=== PATIENT | male | born 1985 | race Hispanic/Latino ===

== ENCOUNTER 2018-01-07 12:33 | Emergency (ER) | payer OTHER ==
[~2018-01-07] VITALS: Ht 157.5 cm; Wt 135.6 kg
--- OUTSIDE RECORDS SUMMARY | 2018-01-07 12:35 | XMS REPORT | Clinical Summary ---
Author Author [facility] Address Unknown Phone Unavailable Care Team Providers Care Parachute Inspector Name Role Phone Jacob Pearl MD PCP Allergies No Known Allergies Current Medications Prescription Sig. Disp. Refills Start End Date Status Date cefdinir (OMNICEF) 300 MG Take 1 capsule (300 mg 20 capsule 0 07/16/20 capsuleIndications: total) by mouth 2 (two) 17 17 History of recurrent ear times a day for 10 days. infection Active Problems Problem Noted Date Chronic idiopathic constipation 08/25/2017 Hyperplastic colon polyp 08/09/2017 Overview: 2 sessile benign 07/2017 - repeat colonoscopy in 5 years 07/2022 Internal hemorrhoid 08/09/2017 Overview: Need high fiber diet Encounters Date Type Specialty Care Team Description 08/25/2017 Telephone Family Medicine Solange Polanco MA 07/06/2017 Office Visit Family Medicine Jayashree Pearl MD Routine check-up (Primary Dx); Irritable bowel syndrome with both constipation and diarrhea; Screening, lipid; Screening for endocrine disorder; Screening for prostate cancer; History of recurrent ear infection after 01/06/2017 Family History Medical History Relation Name Comments No Known Problems Father Hypertension Maternal Grandfather Hypertension Maternal Grandmother Hypertension Mother Relation Name Status Comments Brother Alive Brother Alive Brother Alive Father Alive Maternal Grandfather Maternal Grandmother Alive Mother Alive Paternal Grandfather Alive Paternal Grandmother Alive Social History Tobacco Use Types Packs/Day Years Used Date Current Some Day Smoker Cigars 0 Smokeless Tobacco: Never Used Tobacco Cessation: Ready to Quit: No; Counseling Given: Yes Comments: cigar every once in a while Alcohol Use Drinks/Week oz/Week Comments Yes 1 Cans of 0.6 1/ week beer Sex Assigned at Date Recorded Not on file Last Filed Vital Signs Vital Sign Reading Time Taken Blood Pressure 124/84 07/06/2017 10:13 AM CDT Pulse 58 07/06/2017 10:13 AM CDT Temperature 36.6 C (97.9 F) 07/06/2017 10:13 AM CDT Respiratory Rate - - Oxygen Saturation 99% 07/06/2017 10:13 AM CDT Inhaled Oxygen - - Concentration Weight 133 kg (294 lb) 07/06/2017 10:13 AM CDT Height 172.7 cm (5' 8") 07/06/2017 10:13 AM CDT Body Mass Index 44.7 07/06/2017 10:13 AM CDT Plan of Treatment Health Maintenance Due Date Last Done Comments INFLUENZA VACCINE 04/12/2018 Results * Thyroid stimulating hormone (07/06/2017 11:13 AM) Component Value Ref Range TSH 1.34 0.40 - 4.50 mIU/L Specimen Performing Laboratory [facility] Narrative FASTING:YES * Prostate specific antigen (07/06/2017 11:13 AM) Component Value Ref Range PSA 0.3 < OR=4.0 ng/mL Comment: The total PSA value from this assay system is standardized against the WHO standard. The test result will be approximately 20% lower when compared to the equimolar-standardized total PSA (Jose Vernon). Comparison of serial PSA results should be interpreted with this fact in mind. This test was performed using the Siemens chemiluminescent method. Values obtained from different assay methods cannot be used interchangeably. PSA levels, regardless of value, should not be interpreted as absolute evidence of the presence or absence of disease. Specimen Performing Laboratory [facility] Narrative FASTING:YES * Hemoglobin A1c (07/06/2017 11:13 AM) Component Value Ref Range Hemoglobin A1C 5.3 <5.7 % of total Hgb Comment: For the purpose of screening for the presence of diabetes: <5.7% Consistent with the absence of diabetes 5.7-6.4% Consistent with increased risk for diabetes (prediabetes) > or=6.5% Consistent with diabetes This assay result is consistent with a decreased risk of diabetes. Currently, no consensus exists regarding use of hemoglobin A1c for diagnosis of diabetes in children. According to [place] Diabetes Association (ADA) guidelines, hemoglobin A1c <7.0% represents optimal control in non- diabetic patients. Different metrics may apply to specific patient populations. Standards of Medical Care in Diabetes(ADA). Specimen Performing Laboratory [facility] Narrative FASTING:YES * Lipid panel (07/06/2017 11:13 AM) Component Value Ref Range Cholesterol, total 183 <200 mg/dL HDL cholesterol 38 (L) >40 mg/dL Triglycerides 125 <150 mg/dL LDL cholesterol 121 (H) mg/dL (calc) calculated Comment: Reference range: <100 Desirable range <100 mg/dL for patients with CHD or diabetes and <70 mg/dL for diabetic patients with known heart disease. LDL-C is now calculated using the Cesar calculation, which is a validated novel method providing better accuracy than the Friedewald equation in the estimation of LDL-C. Dangelo SS et al. THAO. 2013;310(19): 6458-9171 (http://education.[employer]/faq/KWZ083) Cholesterol/HDL ratio 4.8 <5.0 (calc) Non-HDL cholesterol 145 (H) <130 mg/dL (calc) Comment: For patients with diabetes plus 1 major ASCVD risk factor, treating to a non-HDL-C goal of <100 mg/dL (LDL-C of <70 mg/dL) is considered a therapeutic option. Specimen Performing Laboratory [facility] Narrative FASTING:YES * Comprehensive metabolic panel (07/06/2017 11:13 AM) Component Value Ref Range Glucose 87 65 - 99 mg/dL Comment: Fasting reference interval BUN, whole blood 16 7 - 25 mg/dL Creatinine 1.02 0.60 - 1.35 mg/dL EGFR Non-Afr. [place] 98 > OR=60 mL/min/1.73m2 EGFR 114 > OR=60 mL/min/1.73m2 BUN/creatinine ratio NOT APPLICABLE 6 - 22 (calc) Sodium 143 135 - 146 mmol/L Potassium 4.8 3.5 - 5.3 mmol/L Chloride 106 98 - 110 mmol/L CO2 28 20 - 31 mmol/L Calcium 9.8 8.6 - 10.3 mg/dL Protein 7.4 6.1 - 8.1 g/dL Albumin, S 4.8 3.6 - 5.1 g/dL Globulin, total 2.6 1.9 - 3.7 g/dL (calc) Albumin/globulin ratio 1.8 1.0 - 2.5 (calc) Total bilirubin 0.5 0.2 - 1.2 mg/dL Alkaline phosphatase 60 40 - 115 U/L AST 21 10 - 40 U/L ALT 49 (H) 9 - 46 U/L Specimen Performing Laboratory [facility] Narrative FASTING:YES after 01/06/2017 Insurance Payer Benefit Subscriber ID Type Phone Address Plan / Group AETNA AETNA xxxxxxxxxx HMO HMO,POS,EP [place], [place] [address]
[2018-01-07 14:17] VITALS: BP 138/76
[2018-01-07] MEDS ORDERED: TETANUS/DIPHTHERIA TOX ADULT 0.5 ML SYR IM ONE (14:30)
== END 2018-01-07 14:27 | disposition home or self-care (01) ==
LOC: FSED 12:33
PROC: 0JQ10ZZ Repair Face Subcutaneous Tissue and Fascia, Open Approach (ICD-10-PCS; principal; 2018-01-07)
DX: S01.82XA Laceration with foreign body of other part of head, initial encounter (principal); W20.8XXA Other cause of strike by thrown, projected or falling object, initial encounter; Y92.017 Garden or yard in single-family (private) house as the place of occurrence of the external cause; Z23 Encounter for immunization; I10 Essential (primary) hypertension
CPT/HCPCS: 70496; 90471; 90714; 96372; 99283

== ENCOUNTER 2021-01-11 19:23 | Emergency (ER) | payer OTHER ==
[~2021-01-11] VITALS: Ht 157.5 cm; Wt 135.6 kg
== END 2021-01-11 21:00 | disposition home or self-care (01) ==
LOC: ER 20:05
DX: T24.111A Burn of first degree of right thigh, initial encounter (principal); T25.122A Burn of first degree of left foot, initial encounter; X11.8XXA Contact with other hot tap-water, initial encounter; Y92.008 Other place in unspecified non-institutional (private) residence as the place of occurrence of the external cause
CPT/HCPCS: 99282

== ENCOUNTER 2024-01-03 12:55 | Emergency (ER) | payer OTHER ==
[~2024-01-03] VITALS: Ht 172.7 cm; Wt 145.1 kg
[2024-01-03] MEDS: ASPIRIN 81 MG CHEW TAB PO ONE (13:39)
[2024-01-03] MEDS ORDERED: ASPIRIN 81 MG CHEW TAB ONE (13:40)
[2024-01-03 13:41] LABS: BASOPHILS % 0.2 % (0.0-1.0); EOSINOPHILS # (AUTO) 0.4 (0.0-0.4); HEMATOCRIT 42.3 % (38.2-49.6); HEMOGLOBIN 14.6 g/dL (14.0-18.0); LYMPHOCYTES # (AUTO) 2.5 (1.0-3.2); LYMPHOCYTES % 30.3 % (18.0-39.1); MEAN CORPUSCULAR HEMOGLOBIN 30.2 pg (28-32); MEAN CORPUSCULAR HGB CONC 34.5 g/dL (31-35); MEAN CORPUSCULAR VOLUME 87.6 fL (81-99); MONOCYTES # (AUTO) 0.8 (0.2-0.8); MONOCYTES % 9.9 % (4.4-11.3); NEUTROPHILS # (AUTO) 4.4 (2.1-6.9); NEUTROPHILS % 54.2 % (38.7-80.0); PLATELET COUNT 194 x10e3/uL (140-360); RED BLOOD COUNT 4.83 x10e6/uL (4.3-5.7); RED CELL DISTRIBUTION WIDTH 12.2 % (11.7-14.4); WHITE BLOOD COUNT 8.15 x10e3/uL (4.8-10.8)
[2024-01-03 14:03] LABS: ALANINE AMINOTRANSFERASE 26 IU/L (0-55); ALBUMIN 4.3 g/dL (3.5-5.0); ALBUMIN/GLOBULIN RATIO 1.5 (0.8-2.0); ALKALINE PHOSPHATASE 65 IU/L (40-150); ANION GAP 13.9 mmol/L (8-16); BILIRUBIN,TOTAL 0.3 mg/dL (0.2-1.2); BLOOD UREA NITROGEN 18 mg/dL (7-26); BUN/CREATININE RATIO 17 (6-25); CALCIUM 9.3 mg/dL (8.4-10.2); CARBON DIOXIDE 25 mmol/L (22-29); CHLORIDE 107 mmol/L (98-107); CREATINE KINASE 176 IU/L (30-200); CREATININE, SERUM 1.09 mg/dL (0.72-1.25); EST GLOMERULAR FILTRATION RATE 90 ML/MIN (>=60); GLUCOSE 87 mg/dL (74-118); LIPASE 31 U/L (8-78); MAGNESIUM 2.1 MG/DL (1.3-2.1); POTASSIUM 3.9 mmol/L (3.5-5.1); SODIUM 142 mmol/L (136-145); TOTAL PROTEIN 7.1 g/dL (6.5-8.1)
[2024-01-03 16:38] LABS: TROPONIN I < 0.05 ng/mL (0.0-0.40)
[2024-01-03 17:06] VITALS: O2SAT 100
== END 2024-01-03 17:10 | disposition home or self-care (01) ==
LOC: ER 13:10
DX: R07.89 Other chest pain (principal); I10 Essential (primary) hypertension
CPT/HCPCS: 36415; 71045; 80053; 82550; 83690; 83735; 83880; 84484; 85025; 93005; 99284